=== PATIENT | female | born 1965 | race Caucasian/White ===

== ENCOUNTER 2022-10-05 00:49 | Emergency (ER) | payer BC ==
[2022-10-05 00:58] VITALS: PULSE 78; RESP 16; TEMP 97.8; BMI 21.1
[2022-10-05] MEDS ORDERED: FAMOTIDINE 20 MG/50 ML IVPB 20 MG/50 ML MG IVPB ONE ×2 (01:25→01:26)
[2022-10-05] MEDS ORDERED: HYOSCYAMINE SULFATE 0.125 MG *ODT PO ONE (01:38)
[2022-10-05 02:05] LABS: BASO % 0.6 % (0-2.0); EOS % 2.9 % (0-4.5); HEMATOCRIT 38.7 % (32.4-45.2); HEMOGLOBIN 13.4 GM/dL (10.7-15.3); MCH 31.2 pg (25.7-33.7); MCHC 34.7 g/dl (32.0-36.0); MEAN CELL VOLUME 90.1 fl (80-96); MEAN PLT VOLUME 9.4 fl (7.5-11.1); MONO % 4.7 % (3.8-10.2); NEUT % 56.8 % (42.8-82.8); PLATELET COUNT 242 10^3/uL (134-434); RDW 13.6 % (11.6-15.6); WHITE BLOOD COUNT 11.4 K/mm3 (4.0-10.0)
[2022-10-05 04:16] LABS: POTASSIUM 3.8 mmol/L (3.5-5.1)
[2022-10-05 04:20] LABS: CALCIUM 9.2 mg/dL (8.5-10.1)
[2022-10-05 04:21] LABS: ALBUMIN 3.7 g/dl (3.4-5.0); BLOOD UREA NITROGEN 19.9 mg/dL (7-18)
[2022-10-05 04:24] LABS: CREATININE 0.8 mg/dL (0.55-1.3)
[2022-10-05 04:25] LABS: BILIRUBIN,TOTAL 0.2 mg/dL (0.2-1)
[2022-10-05 05:03] VITALS: BP 122/56
== END 2022-10-05 05:06 | disposition home or self-care (01) ==
LOC: FER 00:49
PROC: 3E033GC Introduction of Other Therapeutic Substance into Peripheral Vein, Percutaneous Approach (ICD-10-PCS; principal; 2022-10-05)
DX: M54.6 Pain in thoracic spine (principal); R10.13 Epigastric pain; R05.9 Cough, unspecified; R07.89 Other chest pain
CPT/HCPCS: 36415; 80053; 84484; 85025; 93005; 99284-25